=== PATIENT | male | born 1955 | race Caucasian/White ===

== ENCOUNTER → 2019-03-17 | Outpatient (CLI) | payer MEDICARE ==
[~2019-03-17] VITALS: Ht 175.3 cm; Wt 122.5 kg
[2019-03-17] VITALS (10 sets, daily range): BP systolic 102–136; BP diastolic 67–92
== END | disposition home or self-care (01) ==
LOC: M.ULTRA 07:49
DX: C61 Malignant neoplasm of prostate (principal); I10 Essential (primary) hypertension; E78.00 Pure hypercholesterolemia, unspecified; E11.9 Type 2 diabetes mellitus without complications